=== PATIENT | male | born 1965 | race Caucasian/White ===

== ENCOUNTER 2019-12-21 10:23 | Emergency (ER) | payer BC, OTHER ==
--- NOTE | 2019-12-30 06:11 | PQF ---
[facility] POST DISCHARGE CLINICAL DOCUMENTATION IMPROVEMENT CLARIFICATION FORM l Todays Date: 12/29/2019 l Patients Name Alex Easley l l Admit Date 12/21/2019 l Disch Date 12/21/2019 Plant Operations Vice President Name Marian LandersJennie. Email: [email or web address] Cell: [phone] To be completed by Plant Operations Vice President: Present Clinical Indicators - Signs / Symptoms Results and Location in Medical Record [ ] Documentation of: [ ] [ ] Documentation of: [ ] [ ] Documentation of: [ ] [ ] Documentation of: [ ] [ ] Risks [ ] [ ] [ ] Treatment [x] Bronchitis Query for specificity of acute or chronic Bronchitis [ ] [ ] To be completed by Physician: MEGAN Garcia Jacob. The documentation in this patients record requires clarification to ensure coding compliance and accuracy. Check the appropriate box and include in your discharge summary. [ ] [ ] [ ] [ ] Please check this box if this does not apply to this patient [ ] Unable to determine [ ] Other diagnosis: Review the following information and exercise your independent professional judgment in responding to the clarification. Based upon the clinical findings, risk factors, and treatment, please clarify if you are treating one of the above probable or suspected diagnoses. Physician Signature: Date Time MTDD
== END 2019-12-21 10:57 | disposition home or self-care (01) ==
LOC: ERS 10:23
DX: J40 Bronchitis, not specified as acute or chronic (principal); I10 Essential (primary) hypertension; E78.00 Pure hypercholesterolemia, unspecified
CPT/HCPCS: 99283